=== PATIENT | female | born 1970 | race Caucasian/White ===

== ENCOUNTER 2019-03-31 04:22 | Emergency (ER) | payer OTHER ==
[~2019-03-31] VITALS: Ht 165.1 cm; Wt 119.4 kg
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
[2019-03-31] MEDS ORDERED: SODIUM CHLORIDE FLUSH 10ML SYR IVF ONE (05:00)
[2019-03-31] MEDS ORDERED: KETOROLAC 30 MG/1 ML IVPush ONE (05:00)
[2019-03-31] MEDS ORDERED: METOCLOPRAMIDE 5 MG/ML, 2ML IVPush ONE (05:00)
[2019-03-31] MEDS ORDERED: DIPHENHYDRAMINE 50 MG/ML, 1ML IVPush ONE (05:00)
[2019-03-31] MEDS ORDERED: DIPHENHYDRAMINE 50 MG/ML, 1ML ONE (05:02)
[2019-03-31] MEDS ORDERED: METOCLOPRAMIDE 5 MG/ML, 2ML ONE (05:02)
[2019-03-31] MEDS ORDERED: KETOROLAC 30 MG/1 ML ONE (05:02)
[2019-03-31 05:13] LABS: RAPID INFLUENZA A POSITIVE (Negative); RAPID INFLUENZA B Negative (Negative)
[2019-03-31 05:17] VITALS: BP 141/80
== END 2019-03-31 06:30 | disposition home or self-care (01) ==
LOC: ED 06:11
DX: J10.1 Influenza due to other identified influenza virus with other respiratory manifestations (principal); B34.9 Viral infection, unspecified; R51 Headache; R11.0 Nausea
CPT/HCPCS: 71046; 87400; 96374; 96375; 99284; J1200; J1885; J2765